=== PATIENT | male | born 1940 ===

== ENCOUNTER 2023-02-04 18:29 | Emergency (ER) | payer MEDICARE, SELFPAY ==
--- NOTE | ~2023-02-04 | XR_ITS ---
EXAMINATION: XR CHEST 2 VIEWS CLINICAL INFORMATION: Weakness. COMPARISON: None. TECHNIQUE: Frontal and lateral views of the chest were obtained. FINDINGS: The heart, great vessels, pulmonary vasculature and mediastinum are normal. The lungs show no focal infiltrate, effusion or pneumothorax. There is no acute osseous abnormality. XR/XR chest 2V IMPRESSION: No active cardiopulmonary disease.
[2023-02-04 18:56] VITALS: BP 94/50; PULSE 78; RESP 16; TEMP 36.6; O2SAT 97; BMI 20.2
--- NOTE | 2023-02-04 18:56 | ED.FEVER ---
HPI - Fever General Chief Complaint: Fever Stated Complaint: fever Time Seen by Provider: 02/04/23 19:30 Source: patient and family (patient's son) Mode of arrival: ambulatory Limitations: no limitations History of Present Illness HPI Narrative: 83 year old male with PMH of anemia presenting with a chief complaint of tactile fevers, generalized weakness, and muscle aches x 10 days Patient reports first recorded fever was today at 101 for which he took Tylenol at 16:00 He reports occasional gait instability where he has to steady himself on nearby thurman, denies falls or LOC He reports 2 episodes of diarrhea 7 days ago but denies any other occurrences since then Denies dark or bloody stools Denies falls or loss of balance Denies other associated symptoms including abdominal pain, nausea, vomiting, cough, shortness of breath, or blurry vision. Patient also endorses urinary frequency but denies dysuria and reports that he drinks lots of water He reports working in his garden daily and is concerned for possible tick-borne disease The patient is with his son who was recently diagnosed with babesiosis elicited complaint: fever, malaise and weakness Onset (ago): day(s) Associated symptoms: denies other symptoms Treatments prior to arrival fever: acetaminophen Related Data Previous Rx's Medication Instructions Recorded doxycycline hyclate 100 mg tablet 100 mg PO BID #42 tabs 02/04/23 Allergies Allergy/AdvReac Type Severity Reaction Status Date / Time No Known Allergies Allergy Verified 02/04/23 18:57 Review of Systems Constitutional: Constitutional: Reports as per HPI, Reports chills, Reports fever(s) and Denies frequent falls Eyes: Eyes: Denies blurry vision, Denies change in vision and Denies diplopia ENT: Denies dizziness, Denies nasal congestion, Denies nasal discharge and Denies sore throat Cardiovascular: Cardiovascular: Denies chest pain, Denies syncope, Denies dyspnea and Denies dyspnea on exertion Respiratory: Respiratory: Denies cough, Denies dyspnea and Denies dyspnea on exertion Gastrointestinal: Gastrointestinal: Denies abdominal pain, Denies melena, Denies bloating, Denies change in bowel habits and Denies constipation Genitourinary: Genitourinary: Denies difficulty urinating, Denies dysuria and Reports urinary frequency Musculoskeletal: Musculoskeletal: Denies back pain, Reports myalgias and Denies arthralgias Comments: General body aches Integumentary/Breasts: Skin/Breast: Denies rash Neurologic: Denies dizziness, Denies syncope and Denies frequent falls PMFSH Social History Social History Alcohol intake: former Smoked in Last 30 Days: No Use of substances other than those prescribed or required for medical reasons: No Advance Directives: No Advance Directives Information Provided: No Physical Exam Vital Signs: Vital Signs: Last Vital Signs Temp 97.8 F 02/04/23 18:56 Pulse 71 02/04/23 21:05 Resp 18 02/04/23 21:05 BP 105/52 L 02/04/23 21:05 Pulse Ox 100 02/04/23 20:29 O2 Del Method Room Air 02/04/23 20:29 BMI result Body Mass Index 20.2 Const: General: healthy appearing, comfortable, no acute distress, alert and awake Nutritional Appearance: well nourished Orientation/consciousness: patient oriented x3 HEENT: Head: Yes normocephalic and Yes atraumatic Eyes: Eyelids: Yes eyelids normal Conjunctivae: conjunctivae normal Sclerae: sclerae normal Corneas: corneas normal Pupils: Equal, round and reactive pupils present Neck: Neck: Yes full ROM Resp: Effort & Inspection: normal respiratory effort, able to speak in complete sentences, no audible wheezes and not labored Auscultation: clear to auscultation bilaterally GI: Inspection: No distended Palpation (GI): Soft to palpation, not firm, nontender, no guarding and not rigid Auscultation: normoactive bowel sounds Skin: General skin exam: no rashes or lesions noted and elasticity normal Neuro: General: patient oriented x3 Cranial nerves: Yes Equal, round and reactive pupils present and Yes Bilaterally intact EOM present Cognition (Neuro): normal cognition Course Course Course Narrative: RME - 83 y/o male with hx HTN, anemia, gastric cancer s/p [place] I now in remission who presents to the ER for evaluation of body aches and fatigue x10 days and new fever of 101 today. Son w/ recent Babesiosis. Patient has been working outside a lot lately. No known tick bites. BP soft in triage, no fever or tachycardia. Plan: tick panel, lab workup 02/09/2023 7:59 p.m. 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 He was noted to have a mild anemia with a normal MCV. Electrolytes/chemistries were reassuring. I discussed the patient's son who happens to be a hospitalist. Tick-borne disease is the most likely cause of the patient's fevers and myalgias. We will treat with doxycycline while the tick-borne panel is pending. I discussed a rectal exam with the patient and his son but they decline at this time Time: 21:57 Medical Decision Making Medical Decision Making [facility] Narrative: 83-year-old male presents for evaluation of fevers. He is febrile to 101 prior to arrival in treat himself with acetaminophen. He is afebrile in the emergency department. He is mildly hypotensive at 94/50. The patient has very Fe symptoms of generalized body aches and weakness. Will get chest x-ray, UA, labs including blood cultures as well as a tick panel. The patient is not septic Differential Diagnosis Differential Diagnoses: The differential diagnosis associated with the presentation includes Lyme Disease Babesiosis Anaplasmosis Upper Respiratory Infection Atypical Pneumonia Viral syndrome UTI Lab Data [facility] Lab Attestation statement: I reviewed the patient's lab results. (Mild normocytic anemia, no leukocytosis. Electrolytes within normal limits. Mild increase in AST to 43) 02/04/23 19:35 02/04/23 19:35 Labs: Lab Results 02/04/23 02/04/23 02/04/23 Range/Units 19:34 19:34 19:35 WBC 5.2 (4.8-10.8) X10*3/uL RBC 3.20 L (4.60-5.80) X10*6/uL Hgb 9.5 L (14.0-18.0) g/dl Hct 28.7 L (42.0-52.0) % MCV 89.7 (80.0-98.0) fL MCH 29.7 (27.0-33.0) pg MCHC 33.1 (31.0-36.0) g/dl RDW 13.9 (11.0-16.0) % Plt Count 129 L (160-400) X10*3/uL MPV 10.0 (9.4-12.4) fL Immature Gran % (Auto) 0.4 (0.0-0.4) % Neut % (Auto) 61.2 (45-73) % Lymph % (Auto) 18.6 L (20-40) % [place] % (Auto) 19.2 H (2-11) % Eos % (Auto) 0.4 (0-4) % Baso % (Auto) 0.2 (0-2) % Lymph # (Auto) 1.0 L (1.2-4.9) X10*3/uL [place] # (Auto) 1.0 (0.1-1.2) X10*3/uL Eos # (Auto) 0.0 (0.0-0.4) X10*3/uL Baso # (Auto) 0.0 (0.0-0.2) X10*3/uL Abs Immat Gran (auto) 0.02 (0.00-0.03) X10*3/uL Absolute Neuts (auto) 3.2 (2.0-8.3) x10*3/uL Absolute Nucleated RBC 0.000 (0.0-0.012) X10*3/uL Nucleated RBC % (auto) 0.0 (0.0-0.2) /100WBC Absolute Retic 0.057 (0.026-0.095) X10*6/uL Percent Retic 1.8 (0.5-1.8) % Immature Retic Fraction 3.9 (2.3-13.4) % Retic Hgb Equivalent 32.0 (30.0-35.0) pg Sodium (135-145) mmol/L Potassium (3.3-5.1) mmol/L Chloride (96-108) mmol/L Carbon Dioxide (22-29) mmol/L Anion Gap (12-20) BUN (9-16) mg/dL Creatinine (0.5-1.4) mg/dL Estim Creat Clear Calc Estimated GFR Random Glucose (60-115) mg/dL Lactic Acid 1.0 (0.5-2.0) mmol/L Calcium (8.4-10.2) mg/dL Magnesium (1.6-2.6) mg/dL Iron (45-160) mcg/dL TIBC (228-428) mcg/dL % Saturation (15-50) % Unsat Iron Binding ug/dL Ferritin (20-250) ng/mL Total Bilirubin (0.0-1.0) mg/dL Direct Bilirubin (0.0-0.5) mg/dL AST (5-37) U/L ALT (0-40) U/L Alkaline Phosphatase (39-117) U/L Lactate Dehydrogenase (118-273) U/L Total Protein (6.5-8.0) g/dL Albumin (3.5-5.0) g/dL Urine Color Urine Appearance Urine pH (5.0-9.0) Ur Specific [place] (1.005-1.025) Urine Protein (Neg-Trace) mg/dL Urine Glucose (UA) (Negative) mg/dL Urine Ketones (Negative) mg/dL Urine Blood (Negative) Urine Nitrite (Negative) Ur Leukocyte Esterase (Negative) A.phagocytophil DNA PCR (NOT DETECTED) Babesia microti DNA PCR (NOT DETECTED) Borrelia sp DNA (PCR) (NOT DETECTED) Borrelia miyamotoi (PCR) (NOT DETECTED) E.chaffeensis DNA (PCR) (NOT DETECTED) Malaria/Babesia Smear SEE NOTE (NEGATIVE) Tick-borne Disease Ab 02/04/23 02/04/23 02/04/23 Range/Units 19:35 19:35 21:05 WBC (4.8-10.8) X10*3/uL RBC (4.60-5.80) X10*6/uL Hgb (14.0-18.0) g/dl Hct (42.0-52.0) % MCV (80.0-98.0) fL MCH (27.0-33.0) pg MCHC (31.0-36.0) g/dl RDW (11.0-16.0) % Plt Count (160-400) X10*3/uL MPV (9.4-12.4) fL Immature Gran % (Auto) (0.0-0.4) % Neut % (Auto) (45-73) % Lymph % (Auto) (20-40) % [place] % (Auto) (2-11) % Eos % (Auto) (0-4) % Baso % (Auto) (0-2) % Lymph # (Auto) (1.2-4.9) X10*3/uL [place] # (Auto) (0.1-1.2) X10*3/uL Eos # (Auto) (0.0-0.4) X10*3/uL Baso # (Auto) (0.0-0.2) X10*3/uL Abs Immat Gran (auto) (0.00-0.03) X10*3/uL Absolute Neuts (auto) (2.0-8.3) x10*3/uL Absolute Nucleated RBC (0.0-0.012) X10*3/uL Nucleated RBC % (auto) (0.0-0.2) /100WBC Absolute Retic (0.026-0.095) X10*6/uL Percent Retic (0.5-1.8) % Immature Retic Fraction (2.3-13.4) % Retic Hgb Equivalent (30.0-35.0) pg Sodium 136 (135-145) mmol/L Potassium 4.7 (3.3-5.1) mmol/L Chloride 104 (96-108) mmol/L Carbon Dioxide 24 (22-29) mmol/L Anion Gap 13 (12-20) BUN 34 H (9-16) mg/dL Creatinine 0.88 (0.5-1.4) mg/dL Estim Creat Clear Calc 52.6 Estimated GFR > 60 Random Glucose 136 H (60-115) mg/dL Lactic Acid (0.5-2.0) mmol/L Calcium 9.3 (8.4-10.2) mg/dL Magnesium 2.3 (1.6-2.6) mg/dL Iron 36 L (45-160) mcg/dL TIBC 220 L (228-428) mcg/dL % Saturation 16 (15-50) % Unsat Iron Binding 184 ug/dL Ferritin 1107 H (20-250) ng/mL Total Bilirubin 0.9 (0.0-1.0) mg/dL Direct Bilirubin 0.3 (0.0-0.5) mg/dL AST 43 H (5-37) U/L ALT 30 (0-40) U/L Alkaline Phosphatase 58 (39-117) U/L Lactate Dehydrogenase 413 H (118-273) U/L Total Protein 7.4 (6.5-8.0) g/dL Albumin 3.5 (3.5-5.0) g/dL Urine Color Yellow Urine Appearance Clear Urine pH 5.5 (5.0-9.0) Ur Specific [place] 1.020 (1.005-1.025) Urine Protein Negative (Neg-Trace) mg/dL Urine Glucose (UA) Negative (Negative) mg/dL Urine Ketones Negative (Negative) mg/dL Urine Blood Negative (Negative) Urine Nitrite Negative (Negative) Ur Leukocyte Esterase Negative (Negative) A.phagocytophil DNA PCR NOT DETECTED (NOT DETECTED) Babesia microti DNA PCR DETECTED A (NOT DETECTED) Borrelia sp DNA (PCR) NOT DETECTED (NOT DETECTED) Borrelia miyamotoi (PCR) NOT DETECTED (NOT DETECTED) E.chaffeensis DNA (PCR) NOT DETECTED (NOT DETECTED) Malaria/Babesia Smear (NEGATIVE) Tick-borne Disease Ab SEE NOTE Tests considered The following testing was considered but not selected: Rectal exam with guaiac testing. Patient declined Discharge Plan Discharge Clinical Impression: Fever Patient Disposition: Home, Self-Care Instructions: Fever in Adults (ED) Additional Instructions: Your workup in the emergency department today was reassuring. No cause of your fever was noted It is possible that it is related to a tick borne disease. Therefore you should take doxycycline twice daily for up to 3 weeks if your Lyme disease is positive We will call you if any of the tick-borne disease are positive or if your blood cultures are positive. Your blood work and chest x-ray, UA were reassuring Your hemoglobin was low today at 9.5. This may be related to your current illness, but make sure you follow-up with your primary doctor Return for new or worsening symptoms, especially if you notice black or bloody stool Prescriptions: New doxycycline hyclate 100 mg tablet 100 mg PO BID Qty: 42 0RF Interventions: ED Discharge Assessment Last Done: 02/04/23 22:15 Discharge Date/Time: 02/04/23 22:17
--- NOTE | 2023-02-04 19:39 | MHC.EDTECH ---
This tech brought patient into triage area,first set of blood cultures and labs were obtained and sent to lab. Patient attempted to give a urine sample and was unable to at this time. SHIRIN Anderson aware Patient was brought back to bed 3 and patient changed into hospital attire. SHIRIN Anderson is at beside
[2023-02-04 19:44] LABS: MANUAL DIFF FLAG NO
[2023-02-04 19:52] LABS: Basophils Percent Auto 0.2 % (0-2); Eosinophils Percent Auto 0.4 % (0-4); Hematocrit 28.7 % (42.0-52.0); Hemoglobin 9.5 g/dl (14.0-18.0); Imm Gran Abs Auto 0.02 X10*3/uL (0.00-0.03); Imm Gran Pct Auto 0.4 % (0.0-0.4); Lymphocytes Percent Auto 18.6 % (20-40); Mean Corpuscular HGB Conc 33.1 g/dl (31.0-36.0); Mean Corpuscular Hemoglobin 29.7 pg (27.0-33.0); Mean Corpuscular Volume 89.7 fL (80.0-98.0); Monocytes Percent Auto 19.2 % (2-11); Neutrophils Absolute Auto 3.2 x10*3/uL (2.0-8.3); Neutrophils Percent Auto 61.2 % (45-73); Platelet Count 129 X10*3/uL (160-400); Red Cell Distribution Width 13.9 % (11.0-16.0); White Blood Count 5.2 X10*3/uL (4.8-10.8)
--- NOTE | 2023-02-04 20:04 | PC.NURSE ---
pt brought into room 3 from triage. pt changed into gown, placed on shake packer. iv line placed #20g LFA, second set blood cultures drawn and sent. one liter IVF started per PAMELLA Chamberlain verbal order. son at bedside. pt offers no current complaints, is not currently febrile, states he took tylenol approx 3 hours [employer]. will ctm.
[2023-02-04 20:29] VITALS: BP 112/62; PULSE 69; RESP 21; O2SAT 100
[2023-02-04 21:05] VITALS: BP 105/52; PULSE 71; RESP 18
[2023-02-04 21:26] LABS: Appearance Urine Clear; Color Urine Yellow; Glucose Urine UA Negative (Negative); Leukocyte Esterase Urine Negative (Negative); Nitrite Urine Negative (Negative); PH 5.5 (5.0-9.0); Urine Blood Negative (Negative); Urine Ketones Negative (Negative); Urine Protein Negative (Neg-Trace)
[2023-02-04 21:27] LABS: Immature Retic Fraction 3.9 % (2.3-13.4); Reticulocyte Percent 1.8 % (0.5-1.8); Reticulocytes Absolute 0.057 X10*6/uL (0.026-0.095)
[2023-02-04 21:37] LABS: Alanine Aminotransferase 30 U/L (0-40); Albumin Level 3.5 g/dL (3.5-5.0); Alkaline Phosphatase 58 U/L (39-117); Anion Gap 13 (12-20); Aspartate Amino Transferase 43 U/L (5-37); Bilirubin Direct 0.3 mg/dL (0.0-0.5); Bilirubin Total 0.9 mg/dL (0.0-1.0); Blood Urea Nitrogen 34 mg/dL (9-16); Calcium 9.3 mg/dL (8.4-10.2); Carbon Dioxide 24 mmol/L (22-29); Chloride 104 mmol/L (96-108); Creatinine Clr Calc Pharmacy 52.6; Estimated Glomerular Filt Rate > 60; Glucose Random 136 mg/dL (60-115); Lactate Dehydrogenase 413 U/L (118-273); Magnesium 2.3 mg/dL (1.6-2.6); Potassium 4.7 mmol/L (3.3-5.1); Sodium 136 mmol/L (135-145); Total Protein 7.4 g/dL (6.5-8.0)
[2023-02-04 22:32] LABS: Iron 36 mcg/dL (45-160); Percent Iron Saturation 16 % (15-50); Total Iron Binding Capacity 220 mcg/dL (228-428); Unsaturated Iron Binding 184 ug/dL
[2023-02-04 22:52] LABS: Ferritin 1107 ng/mL (20-250)
[2023-02-07 19:44] LABS: A. Phagocytphilium DNA,RT-PCR NOT DETECTED (NOT DETECTED); Babesia Microti DNA, RT-PCR DETECTED (NOT DETECTED); Borrelia Miyamotoi,DNA RT-PCR NOT DETECTED (NOT DETECTED); E.Chaffeensis DNA RT-PCR NOT DETECTED (NOT DETECTED); Lyme(Borrelia ssp)DNA RT-PCR NOT DETECTED (NOT DETECTED)
[2023-02-10 17:18] LABS: Lyme Abs Screen <0.90 index
== END 2023-02-04 22:17 | disposition home or self-care (01) ==
PROVIDERS: Physician Assistant; Emergency Provider Internal Medicine
DX: B60.00 Babesiosis, unspecified (principal); D64.9 Anemia, unspecified; R50.9 Fever, unspecified; R53.1 Weakness; M79.10 Myalgia, unspecified site; I10 Essential (primary) hypertension; R53.83 Other fatigue
CPT/HCPCS: 36415; 71046; 80048; 80076; 81003; 82728; 83540; 83605; 83615; 83735; 85025; 85045; 86617; 86618; 87040; 87207; 87798; 87801; 99283; 99284

== ENCOUNTER 2023-02-14 10:49 | Outpatient (REF) | payer MEDICARE, SELFPAY ==
[2023-02-14 11:03] LABS: MANUAL DIFF FLAG NO
[2023-02-14 11:14] LABS: Basophils Percent Auto 0.2 % (0-2); Eosinophils Percent Auto 0.8 % (0-4); Hematocrit 29.8 % (42.0-52.0); Hemoglobin 9.5 g/dl (14.0-18.0); Imm Gran Abs Auto 0.04 X10*3/uL (0.00-0.03); Imm Gran Pct Auto 0.8 % (0.0-0.4); Immature Retic Fraction 17.7 % (2.3-13.4); Lymphocytes Absolute Auto 1.2 X10*3/uL (1.2-4.9); Lymphocytes Percent Auto 22.5 % (20-40); Mean Corpuscular HGB Conc 31.9 g/dl (31.0-36.0); Mean Platelet Volume 8.5 fL (9.4-12.4); Monocytes Absolute Auto 0.5 X10*3/uL (0.1-1.2); Neutrophils Absolute Auto 3.5 x10*3/uL (2.0-8.3); Neutrophils Percent Auto 65.7 % (45-73); Platelet Count 252 X10*3/uL (160-400); Red Blood Count 3.17 X10*6/uL (4.60-5.80); Red Cell Distribution Width 15.3 % (11.0-16.0); Reticulocyte Percent 4.7 % (0.5-1.8); White Blood Count 5.3 X10*3/uL (4.8-10.8)
[2023-02-14 11:48] LABS: Alanine Aminotransferase 46 U/L (0-40); Albumin Level 3.5 g/dL (3.5-5.0); Alkaline Phosphatase 56 U/L (39-117); Anion Gap 17 (12-20); Aspartate Amino Transferase 58 U/L (5-37); Blood Urea Nitrogen 28 mg/dL (9-16); Calcium 9.9 mg/dL (8.4-10.2); Carbon Dioxide 22 mmol/L (22-29); Chloride 103 mmol/L (96-108); Estimated Glomerular Filt Rate > 60; Glucose Random 126 mg/dL (60-115); Potassium 4.8 mmol/L (3.3-5.1); Sodium 137 mmol/L (135-145); Total Protein 7.7 g/dL (6.5-8.0)
[2023-02-14 12:13] LABS: Folate 14.1 ng/mL (> or = 4.0); Vitamin B12 > 2000 pg/mL (200-900)
[2023-02-14 14:02] LABS: Bilirubin Total 0.6 mg/dL (0.0-1.0)
== END 2023-02-14 10:50 | disposition home or self-care (01) ==
LOC: HO.LAB 10:49
PROVIDERS: Visit Provider Family Medicine
DX: D64.9 Anemia, unspecified (principal); B60.00 Babesiosis, unspecified
CPT/HCPCS: 36415; 80053; 82607; 82746; 85025; 85045; 87207

== ENCOUNTER 2023-09-22 19:14 | Inpatient (IN) | payer MEDICARE, SELFPAY ==
--- NOTE | ~2023-09-22 | MR_ITS ---
EXAMINATION: MR ABDOMEN WITHOUT AND WITH CONTRAST CLINICAL INFORMATION: Masslike fatty inflammation in the right abdomen COMPARISON: Previous CT of the abdomen and pelvis from yesterday TECHNIQUE: MR abdomen was performed without and with use of 6 mL intravenous Gadavist gadolinium contrast. Postcontrast images are performed in multiphase dynamic sequences. Imaging was performed in 3 planes. FINDINGS: LUNG BASES: Not included in the [id number] LIVER, GALLBLADDER, AND BILIARY TREE: The liver is normal in size, smooth in contour, and normal in signal. No focal hepatic lesion or biliary ductal dilatation is present. The gallbladder is unremarkable with no evidence of gallbladder wall thickening, or obvious pericholecystic inflammatory changes. PANCREAS: Unremarkable. SPLEEN: Normal. ADRENAL GLANDS: Normal. KIDNEYS AND URETERS: The kidneys are normal in size, shape, and enhance symmetrically. No hydronephrosis. Bilateral renal cysts. No imaging follow-up recommended. No perinephric stranding. GASTROINTESTINAL TRACT: There may be postsurgical changes to the stomach. This is better seen on yesterday. There is heterogeneous fat signal in the right side of the abdomen anterior to the cecum and ascending colon. This is just deep to the anterior abdominal wall. This measures approximately 4 x 9 x 9 cm in AP transverse and longitudinal dimension. This is slightly low signal on T1-weighted sequences and heterogeneous on T2-weighted sequences. This has delayed capsular or peripheral enhancement and slightly thickened enhancing septation for example axial image 60 series 103 postcontrast. Differential would include fat necrosis related to previous trauma or surgery, epiploic appendicitis and fatty soft tissue mass. Large amount of stool in the colon. ABDOMINAL WALL: No significant hernia is appreciated. LYMPH NODES: No lymphadenopathy. VASCULAR: Unremarkable. OSSEOUS STRUCTURES: Marrow signal normal. MR/MR abdomen wo/w con IMPRESSION: 4 x 9 x 9 cm fatty mass in the right abdomen. This has delayed peripheral or capsular enhancement and enhancing single slightly thickened septation. Differential would include fat necrosis related to previous surgery or trauma, epiploic appendicitis and benign and malignant fatty soft tissue mass. Short-term imaging follow-up recommended.
--- NOTE | ~2023-09-22 | CT_ITS ---
EXAMINATION: CT ABDOMEN AND PELVIS WITH CONTRAST CLINICAL INFORMATION: Right lower quadrant pain COMPARISON: None available. TECHNIQUE: Multidetector volumetric images were obtained from the superior aspect of the liver through the pubic symphysis following administration 85 mL of Omnipaque 350 intravenous contrast. Sagittal and coronal reformatted images were obtained on the technologist's workstation. Oral contrast: No This CT examination was performed using dose optimization techniques as appropriate, variously including the following: *Automated exposure control *Adjustment of mA and/or kV according to patient size (this includes techniques or standardized protocols for targeted exams where dose is matched to indication/reason for exam; i.e. extremities or head) *Use of iterative reconstruction technique DLP: 429 mGy-cm FINDINGS: LUNG BASES: The visualized lung bases are unremarkable. LIVER, GALLBLADDER, AND BILIARY TREE: The liver is normal in size, shape, and attenuation. No focal hepatic lesion or biliary ductal dilatation is present. The gallbladder is contracted but otherwise unremarkable with no evidence of radiopaque gallstones, gallbladder wall thickening, or obvious pericholecystic inflammatory changes. PANCREAS: Unremarkable. SPLEEN: Unremarkable. ADRENAL GLANDS: Unremarkable. KIDNEYS AND URETERS: The kidneys are normal in size, shape, and attenuation. No hydronephrosis, hydroureter, or calculi seen. Multiple bilateral benign Bosniak class I renal cysts are noted which require no additional imaging or follow-up. No solid renal masses are seen. No perinephric stranding. BLADDER: Unremarkable. GASTROINTESTINAL TRACT: In the right lower quadrant/midabdomen there is a 6.0 x 5.1 x 4.6 cm area of masslike fatty inflammation. This is adjacent to a segment of transverse colon with some wall thickening, narrowing and pericolonic inflammatory change. Small bowel loops adjacent to this area also appears thickened and minimally tethered. These findings could be secondary to an unusual case of diverticulitis or epiploic appendagitis and much less likely a liposarcoma. The small and large bowel are otherwise unremarkable. The appendix is unremarkable. ABDOMINAL WALL: No significant hernia is appreciated. LYMPH NODES: No retroperitoneal lymphadenopathy VASCULAR: Calcific atherosclerotic changes are present in the aorta and iliofemoral vessels. There is no evidence of an abdominal aortic aneurysm. PELVIC VISCERA: Mildly prominent prostate. Seminal vesicles appear normal. OSSEOUS STRUCTURES: Degenerative changes are present in the spine. No bony destructive lesions CT/CT abdomen pelvis w IV con IMPRESSION: 1. Masslike area of fatty inflammation in the right lower quadrant/midabdomen adjacent to a segment of transverse colon with some wall thickening and pericolonic inflammatory change. This may be secondary to diverticulitis or epiploic appendagitis and less likely malignancy. 2. Other incidental findings as described above. Fleischner guidelines were followed.
[2023-09-22 20:14] VITALS: BP 130/83; PULSE 81; RESP 18; TEMP 37.2; O2SAT 96; BMI 21.1
--- NOTE | 2023-09-22 20:20 | ED_ITS ---
HPI - General Adult General Chief complaint: Abdominal Pain Stated complaint: LWR RT TO MIDDLE ABD PAIN/APPENDICITIS? Time Seen by Provider: 09/22/23 21:14 Source: patient Mode of arrival: ambulatory Limitations: no limitations History of Present Illness HPI narrative: Patient is an 83-year-old male who presents to the emergency department for evaluation of right lower quadrant abdominal pain. Onset was 2 days ago. Progressively worsening. Has been constant in nature but worse since yesterday evening. He was evaluated at urgent care and advised to come to the emergency department to rule out appendicitis. Denies fevers, chills, nausea, vomiting, diarrhea, constipation, genitourinary symptoms, back/flank pain. Related Data Home Medications Medication Instructions Recorded Confirmed irbesartan 300 mg tablet 300 mg PO DAILY 09/23/23 09/23/23 lovastatin 40 mg tablet 40 mg PO DAILY 09/23/23 09/23/23 Previous Rx's Medication Instructions Recorded doxycycline hyclate 100 mg tablet 100 mg PO BID #42 tabs 02/04/23 Allergies Allergy/AdvReac Type Severity Reaction Status Date / Time No Known Allergies Allergy Verified 02/04/23 18:57 Review of Systems 2 Review of Systems: Yes all other systems are reviewed and are negative PMFSH Past Medical History Attestation statement: The following information was validated with the patient. Source: old records reviewed Medical History (Updated 09/23/23 @ 00:54 by Yeimy Marroquin MD) Gastric cancer Hyperlipidemia Essential hypertension Surgical History (Updated 09/23/23 @ 00:58 by Yeimy Marroquin MD) H/O colonoscopy H/O esophagogastroduodenoscopy H/O laparoscopy Social History Social History (Updated 09/23/23 @ 00:55 by Yeimy Marroquin MD) Alcohol intake: current Comment: 1 serving/wek Patient Tobacco Use Status: Former Tobacco user Years Smoked: quit 1984 Smoked in Last 30 Days: No e-Cigarette/Vaping Use: Never Used Use of substances other than those prescribed or required for medical reasons: No Advance Directives: No Advance Directives Information Provided: No Physical Exam ED Vital Signs: Vital Signs - 24 hr 09/22/23 20:14 09/22/23 22:51 Temperature 98.9 F 99.1 F Pulse Rate 81 87 Respiratory Rate 18 18 Blood Pressure 130/83 126/68 Pulse Oximetry 96 97 Oxygen Delivery Method Room Air Room Air BMI result Body Mass Index 21.1 Appearance: Alert.?Oriented to person, place and time. No acute distress.?Normal affect. Neck: Normal inspection.? Neck supple.?? CVS: Heart sounds normal. Normal heart rate and rhythm.? Pulses normal.?? Respiratory: No respiratory distress.? Lung sounds clear to auscultation bilaterally?? Abdomen: Soft with significant right lower quadrant tenderness upon palpation. Hypo active bowel sounds. No pulsatile mass.?? Skin: Skin warm and dry.? Normal skin color.? ? Extremities: No lower extremity edema.? Neuro: Moves all extremities spontaneously. Sensation intact bilaterally. Ambulates with normal steady gait. Course Course Course Narrative: RME- 83-year-old male presents for evaluation of right lower quadrant pain for last 2 days. He was sent from urgent care to rule out appendicitis. Plan for labs, UA, CT scan of the abdomen pelvis Reevaluation(s) Reevaluation #1: CT revealing a masslike area fatty inflammation the right lower quadrant/mid abdomen adjacent to a segment of the transverse colon with some wall thickening and pericolonic inflammatory changes, radiologist impression includes possible secondary to diverticulitis or epiploic appendagitis, less likely malignancy. History does not appear consistent with diverticulitis. I did consult General surgery, spoke with Dr. Price who did not feel as though abscess or appendicitis is seen in recommended MRI for further clarification. He does still have significant tenderness upon palpation I discussed with patient and his son admission to medicine service for further workup and possible GI consultation, and he agrees with plan of care Time: 23:38 Medications Administered Generic Name Dose Route Start Last Admin Trade Name Freq PRN Reason Stop Dose Admin Sodium Chloride 1,000 mls @ 100 mls/hr 09/23/23 00:30 09/23/23 00:37 Ns IVCONT 100 mls/hr .Q10H ALFONSO Administration Zolpidem Tartrate 5 mg 09/23/23 00:45 09/23/23 00:56 Zolpidem Tartrate 5 Mg Tablet PO 5 mg BEDTIME PRN Administration Insomnia Discontinued Medications Generic Name Dose Route Start Last Admin Trade Name Freq PRN Reason Stop Dose Admin Sodium Chloride 1,000 mls @ 999 mls/hr 09/22/23 21:15 09/22/23 22:22 Ns IV 09/22/23 22:15 Infused .Q1H1M ALFONSO Infusion Iohexol 100 ml 09/22/23 21:44 09/22/23 21:46 Iohexol 350 Mg/Ml 100 Ml Infus..Btl IV 09/22/23 21:45 85 ml ONCE ONE Administration Medical Decision Making Medical Decision Making [facility] Narrative: Patient is an 83-year-old male past medical history of hypertension hyperlipidemia presenting to the emergency department for evaluation of right lower quadrant pain as per HPI. Has exquisite tenderness upon examination, concern for possible appendicitis, colitis, bowel obstruction, constipation. Less likely hydronephrosis, renal colic, obstructive calculi. CBC is without leukocytosis there is however left shift, mild normocytic anemia consistent with baseline. Elevated BUN at 27 consistent with baseline creatinine within normal range otherwise unremarkable CMP and lipase is within normal limits. Urinalysis and CT of the abdomen and pelvis is pending at this time. Patient declines pain medication. Disposition pending results. Differential Diagnosis Differential Diagnoses: The differential diagnosis associated with the presentation includes (As per narrative above) Admission/Observation Consideration of admission/observation: Escalation of care including admission/observation considered (See narrative above in course narrative for further detail) Consult Healthcare Provider Management of the patient was discussed with: Hospitalist and Poiser Balance (See course narrative) Lab Data [facility] Lab Attestation statement: I reviewed the patient's lab results. (See narrative above) 09/22/23 20:30 09/22/23 20:30 Labs: Lab Results 09/22/23 09/22/23 Range/Units 20:30 22:19 WBC 8.1 (4.8-10.8) X10*3/uL RBC 3.44 L (4.60-5.80) X10*6/uL Hgb 10.6 L (14.0-18.0) g/dl Hct 31.8 L (42.0-52.0) % MCV 92.4 (80.0-98.0) fL MCH 30.8 (27.0-33.0) pg MCHC 33.3 (31.0-36.0) g/dl RDW 13.6 (11.0-16.0) % Plt Count 181 D (160-400) X10*3/uL MPV 9.3 L (9.4-12.4) fL Immature Gran % (Auto) 0.2 (0.0-0.4) % Neut % (Auto) 84.0 H (45-73) % Lymph % (Auto) 8.9 L (20-40) % [place] % (Auto) 6.6 (2-11) % Eos % (Auto) 0.1 (0-4) % Baso % (Auto) 0.2 (0-2) % Lymph # (Auto) 0.7 L (1.2-4.9) X10*3/uL [place] # (Auto) 0.5 (0.1-1.2) X10*3/uL Eos # (Auto) 0.0 (0.0-0.4) X10*3/uL Baso # (Auto) 0.0 (0.0-0.2) X10*3/uL Abs Immat Gran (auto) 0.02 (0.00-0.03) X10*3/uL Absolute Neuts (auto) 6.8 (2.0-8.3) x10*3/uL Absolute Nucleated RBC 0.000 (0.0-0.012) X10*3/uL Nucleated RBC % (auto) 0.0 (0.0-0.2) /100WBC Sodium 135 (135-145) mmol/L Potassium 4.0 (3.3-5.1) mmol/L Chloride 103 (96-108) mmol/L Carbon Dioxide 26 (22-29) mmol/L Anion Gap 10 L (12-20) BUN 27 H (9-16) mg/dL Creatinine 0.94 (0.5-1.4) mg/dL Estim Creat Clear Calc 51.3 Estimated GFR > 60 Random Glucose 147 H (60-115) mg/dL Calcium 9.7 (8.4-10.2) mg/dL Total Bilirubin 0.5 (0.0-1.0) mg/dL AST 21 (5-37) U/L ALT 14 (0-40) U/L Alkaline Phosphatase 49 (39-117) U/L C-Reactive Protein 4.67 H (< or = 0.50) mg/dL Total Protein 8.0 (6.5-8.0) g/dL Albumin 4.4 (3.5-5.0) g/dL Lipase 26 (8-78) U/L Urine Color Yellow Urine Appearance Clear Urine pH 7.0 (5.0-9.0) Ur Specific [place] 1.025 (1.005-1.025) Urine Protein Negative (Neg-Trace) mg/dL Urine Glucose (UA) Negative (Negative) mg/dL Urine Ketones Negative (Negative) mg/dL Urine Blood Trace H (Negative) Urine Nitrite Negative (Negative) Ur Leukocyte Esterase Negative (Negative) Urine RBC 0-2 (0-2) /HPF Urine WBC 0-5 (0-5) /HPF Ur Squamous Epith Cells 0-2 (0-2) /HPF Urine Bacteria None Seen (None Seen) Hyaline Casts 0-2 (0-2) /LPF Radiology Impression Discussion of test interpretation with radiology: I have reviewed the radiologist's reading. Radiologist Impression: CT/CT abdomen pelvis w IV con IMPRESSION: 1. Masslike area of fatty inflammation in the right lower quadrant/midabdomen adjacent to a segment of transverse colon with some wall thickening and pericolonic inflammatory change. This may be secondary to diverticulitis or epiploic appendagitis and less likely malignancy. 2. Other incidental findings as described above. Independent Historian Clinical information obtained from an independent historian. History obtained from or confirmed by: Other (Patient's son) External Record Review External record reviewed: Outpatient record Critical Care Time Critical Care Time Critical Care Time: Yes Total Critical Care Time: 45 Attestation: I personally attest to this critical care time spent taking care of the patient exclusive of all other billable procedures was approximately 45 minutes including initial evaluation of patient, ordering tests, CT interpretation,medical consultation, documentation, re-evaluation. Discharge Plan Discharge Clinical Impression: Abdominal pain Patient Disposition: Admitted As Inpatient
[2023-09-22 20:34] LABS: MANUAL DIFF FLAG NO
[2023-09-22 20:36] LABS: Basophils Percent Auto 0.2 % (0-2); Eosinophils Percent Auto 0.1 % (0-4); Hematocrit 31.8 % (42.0-52.0); Hemoglobin 10.6 g/dl (14.0-18.0); Imm Gran Abs Auto 0.02 X10*3/uL (0.00-0.03); Imm Gran Pct Auto 0.2 % (0.0-0.4); Lymphocytes Absolute Auto 0.7 X10*3/uL (1.2-4.9); Lymphocytes Percent Auto 8.9 % (20-40); Mean Corpuscular HGB Conc 33.3 g/dl (31.0-36.0); Mean Corpuscular Hemoglobin 30.8 pg (27.0-33.0); Mean Corpuscular Volume 92.4 fL (80.0-98.0); Mean Platelet Volume 9.3 fL (9.4-12.4); Monocytes Absolute Auto 0.5 X10*3/uL (0.1-1.2); Monocytes Percent Auto 6.6 % (2-11); Neutrophils Absolute Auto 6.8 x10*3/uL (2.0-8.3); Platelet Count 181 X10*3/uL (160-400); Red Blood Count 3.44 X10*6/uL (4.60-5.80); Red Cell Distribution Width 13.6 % (11.0-16.0); White Blood Count 8.1 X10*3/uL (4.8-10.8)
[2023-09-22 20:50] LABS: Alanine Aminotransferase 14 U/L (0-40); Albumin Level 4.4 g/dL (3.5-5.0); Alkaline Phosphatase 49 U/L (39-117); Anion Gap 10 (12-20); Aspartate Amino Transferase 21 U/L (5-37); Bilirubin Total 0.5 mg/dL (0.0-1.0); Blood Urea Nitrogen 27 mg/dL (9-16); Calcium 9.7 mg/dL (8.4-10.2); Carbon Dioxide 26 mmol/L (22-29); Chloride 103 mmol/L (96-108); Creatinine Clr Calc Pharmacy 51.3; Estimated Glomerular Filt Rate > 60; Glucose Random 147 mg/dL (60-115); Lipase 26 U/L (8-78); Sodium 135 mmol/L (135-145)
[2023-09-22] MEDS: 0.9 % Sodium Chloride 1,000 ML 999 ML IV (21:27)
[2023-09-22] MEDS: iohexoL 350 MG/ML 100 ML INFUS..BTL IV (21:46)
[2023-09-22 22:26] LABS: Appearance Urine Clear; Color Urine Yellow; Glucose Urine UA Negative (Negative); Leukocyte Esterase Urine Negative (Negative); Nitrite Urine Negative (Negative); Specific Gravity - Urine 1.025 (1.005-1.025); UMIC TRIGGER UACC YES; Urine Blood Trace (Negative); Urine Ketones Negative (Negative); Urine Protein Negative (Neg-Trace)
[2023-09-22 22:31] LABS: Bacteria Urine None Seen (None Seen); Hyaline Casts Urine 0-2 /LPF (0-2); RBC Urine 0-2 /HPF (0-2); Squamous Epithelial Cell Urine 0-2 /HPF (0-2); WBC Urine 0-5 /HPF (0-5)
[2023-09-22 22:51] VITALS: BP 126/68; PULSE 87; RESP 18; TEMP 37.3; O2SAT 97
[2023-09-22 23:26] LABS: C Reactive Protein 4.67 mg/dL (< or = 0.50)
[2023-09-23] VITALS (7 sets, daily range): BP systolic 110–134; BP diastolic 59–73; PULSE 68–78; RESP 16–18; TEMP 36.6–37.6; O2SAT 94–99; BMI 22.1
[2023-09-23] MEDS: 0.9 % Sodium Chloride 1,000 ML 100 ML IVCONT ×3 (00:37→20:26)
[2023-09-23] MEDS: Zolpidem Tartrate 5 MG TABLET PO (00:56)
--- NOTE | 2023-09-23 01:15 | P.HPHOSP_ITS ---
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 He denied any associated symptoms such as nausea, vomiting or diarrhea. His last bowel movement was yesterday and was normal. No fever, chills, palpitations or dizziness reported. He denied any chest pain, shortness on breath or cough. He is a former tobacco smoker (quit 1983). Denied alcohol abuse or illicit drug use. Abdominal past surgical history is remarkable for laparoscopic surgery for gastric CA removal in 2009. His last EGD and colonoscopy was in 2013. In the ED, he was found to have normal vital signs. Blood workup showed no leukocytosis. Hemoglobin is 10.6 (which is better than baseline). There are no significant electrolyte imbalances. Creatinine and LFTs are normal. CRP is elevated, 4.67. Urine did not showed evidence of urinary tract infection. Abdomen pelvis CT scan showed mass like area of fatty inflammation in the RLQ/midabdomen adjacent to a segment of transverse colon with some wall thickening and pericolic inflammatory changes (diverticulitis versus epiploic appendagitis, less likely malignancy. ED tx: NS 1 L bolus Review of Systems 2 Review of Systems: All 12 systems were reviewed and normal except as noted in HPI. [facility] Medical History (Updated 09/23/23 @ 01:36 by Yeimy Marroquin MD) Gastric cancer Hyperlipidemia Essential hypertension Surgical History (Updated 09/23/23 @ 00:58 by Yeimy Marroquin MD) H/O colonoscopy H/O esophagogastroduodenoscopy H/O laparoscopy Social History (Updated 09/23/23 @ 00:55 by Yeimy Marroquin MD) Alcohol intake: current Comment: 1 serving/wek Patient Tobacco Use Status: Former Tobacco user Years Smoked: quit 1983 Smoked in Last 30 Days: No e-Cigarette/Vaping Use: Never Used Use of substances other than those prescribed or required for medical reasons: No Advance Directives: No Advance Directives Information Provided: No Meds Allergies Allergy/AdvReac Type Severity Reaction Status Date / Time No Known Allergies Allergy Verified 02/04/23 18:57 Active Medications: Current Medications Sodium Chloride (Ns) 1,000 mls @ 100 mls/hr IVCONT .Q10H [facility] Last Admin: 09/23/23 00:37 Dose: 100 mls/hr Non-Formulary Medication (Irbesartan) 300 mg PO DAILY [facility] Non-Formulary Medication (Lovastatin) 40 mg PO DAILY [facility] Sodium Chloride (0.9 % Sodium Chloride Flush 3 Ml Syringe) 3 ml IVFLUSH QSHIFT [facility] Zolpidem Tartrate (Zolpidem Tartrate 5 Mg Tablet) 5 mg PO BEDTIME PRN PRN Reason: Insomnia Last Admin: 09/23/23 00:56 Dose: 5 mg Home Medications Medication Instructions Recorded Confirmed Last Taken Type irbesartan 300 mg tablet 300 mg PO DAILY 09/23/23 09/23/23 Unknown History lovastatin 40 mg tablet 40 mg PO DAILY 09/23/23 09/23/23 Unknown History Physical Exam 2 Vital Signs and Narrative: Vital Signs: Last Vital Signs Temp 99.1 F 09/22/23 22:51 Pulse 87 09/22/23 22:51 Resp 18 09/22/23 22:51 BP 126/68 09/22/23 22:51 Pulse Ox 97 09/22/23 22:51 O2 Del Method Room Air 09/22/23 22:51 BMI result Body Mass Index 21.1 Constitutional - Awake and Alert, No apparent distress. Cooperative. Pleasant. HEENT - Normal sclerae. Heart - S1S2, RRR. (+) murmur (apex) Lungs - Normal lung expansion, Normal respiratory effort, No respiratory distress, CTA bilaterally Gastrointestinal - +BS, no distention. RLQ/right periumbilical area tenderness to palpation with guarding. No rebound. Extremities - no calf tenderness bilaterally, no swelling Skin - Warm/Dry. No jaundice. Neurological - Alert & oriented x3. No focal weakness grossly noted. Normal speech Psychological - Appropriate affect Results Labs 09/22/23 20:30 09/22/23 20:30 Labs: Laboratory Results - last 24 hr 09/22/23 09/22/23 20:30 22:19 MCV 92.4 MCH 30.8 MCHC 33.3 RDW 13.6 Plt Count 181 D MPV 9.3 L Immature Gran % (Auto) 0.2 Neut % (Auto) 84.0 H Lymph % (Auto) 8.9 L [place] % (Auto) 6.6 Eos % (Auto) 0.1 Baso % (Auto) 0.2 Lymph # (Auto) 0.7 L [place] # (Auto) 0.5 Eos # (Auto) 0.0 Baso # (Auto) 0.0 Abs Immat Gran (auto) 0.02 Absolute Neuts (auto) 6.8 Absolute Nucleated RBC 0.000 Nucleated RBC % (auto) 0.0 Anion Gap 10 L Estim Creat Clear Calc 51.3 Estimated GFR > 60 Random Glucose 147 H Calcium 9.7 Total Bilirubin 0.5 AST 21 ALT 14 Alkaline Phosphatase 49 C-Reactive Protein 4.67 H Total Protein 8.0 Albumin 4.4 Lipase 26 Urine Color Yellow Urine Appearance Clear Urine pH 7.0 Ur Specific [place] 1.025 Urine Protein Negative Urine Glucose (UA) Negative Urine Ketones Negative Urine Blood Trace H Urine Nitrite Negative Ur Leukocyte Esterase Negative Urine RBC 0-2 Urine WBC 0-5 Ur Squamous Epith Cells 0-2 Urine Bacteria None Seen Hyaline Casts 0-2 Imaging Radiologist's Impressions: Impressions Abdomen/Pelvis CT 09/22/23 21:48 IMPRESSION: 1. Masslike area of fatty inflammation in the right lower quadrant/midabdomen adjacent to a segment of transverse colon with some wall thickening and pericolonic inflammatory change. This may be secondary to diverticulitis or epiploic appendagitis and less likely malignancy. 2. Other incidental findings as described above. Fleischner guidelines were followed. Assessment and Plan (1) Abdominal pain: Qualifiers: Abdominal location: right lower quadrant Qualified Code(s): R10.31 - Right lower quadrant pain Status: Acute (2) Essential hypertension: Status: Acute (3) Hyperlipidemia: Qualifiers: Hyperlipidemia type: unspecified Qualified Code(s): E78.5 - Hyperlipidemia, unspecified Status: Acute (4) Insomnia: Plan oRbin Michelle is a 83 years old man with past medical history significant for gastric CA stage 1A s/p laparoscopic Billroth in 2009 admitted with: * RLQ pain --> masslike area of inflammation (diverticulitis vs epiploic appendagitis; less likely malignancy). Admit to hospitalist service. Keep NPO. Start IV fluids Pain control with morphine and/or Toradol and/or acetaminophen as needed. Abdominal MRI. Gastroenterology and surgery service consults. * Essential hypertension. Continue irbesartan (or alternative). * Hyperlipidemia. Continue statin. * Insomnia. Continue Ambien. DVT prophylaxis: SCDs Code status: Full Patient will need hospitalization for at least 2 midnights for right lower quadrant pain treatment with IV pain medications and IV fluids. Patient will also need further evaluation with abdominal MRI in addition to evaluation by subspecialty + surgical service. Quality Stroke Does the patient have a stroke diagnosis?: No VTE Prior VTE?: No VTE Risk Level:: Medical - moderate - high VTE Device Contraindication: Treatment Not Indicated VTE Drug Contraindication: N/A - Med Ordered
[2023-09-23 06:44] LABS: MANUAL DIFF FLAG NO
[2023-09-23 06:49] LABS: Basophils Percent Auto 0.3 % (0-2); Eosinophils Absolute Auto 0.1 X10*3/uL (0.0-0.4); Eosinophils Percent Auto 0.8 % (0-4); Hemoglobin 9.7 g/dl (14.0-18.0); Imm Gran Abs Auto 0.03 X10*3/uL (0.00-0.03); Imm Gran Pct Auto 0.5 % (0.0-0.4); Lymphocytes Absolute Auto 0.9 X10*3/uL (1.2-4.9); Lymphocytes Percent Auto 13.7 % (20-40); Mean Corpuscular HGB Conc 33.4 g/dl (31.0-36.0); Mean Corpuscular Hemoglobin 31.2 pg (27.0-33.0); Mean Corpuscular Volume 93.2 fL (80.0-98.0); Monocytes Absolute Auto 0.6 X10*3/uL (0.1-1.2); Monocytes Percent Auto 9.2 % (2-11); Neutrophils Percent Auto 75.5 % (45-73); Platelet Count 183 X10*3/uL (160-400); Red Blood Count 3.11 X10*6/uL (4.60-5.80); Red Cell Distribution Width 13.5 % (11.0-16.0); White Blood Count 6.6 X10*3/uL (4.8-10.8)
[2023-09-23 07:16] LABS: Alanine Aminotransferase 12 U/L (0-40); Albumin Level 3.8 g/dL (3.5-5.0); Alkaline Phosphatase 44 U/L (39-117); Anion Gap 9 (12-20); Aspartate Amino Transferase 18 U/L (5-37); Bilirubin Total 0.9 mg/dL (0.0-1.0); Blood Urea Nitrogen 19 mg/dL (9-16); Calcium 8.7 mg/dL (8.4-10.2); Carbon Dioxide 25 mmol/L (22-29); Chloride 107 mmol/L (96-108); Creatinine Clr Calc Pharmacy 64.3; Estimated Glomerular Filt Rate > 60; Glucose Random 92 mg/dL (60-115); Potassium 3.5 mmol/L (3.3-5.1); Sodium 137 mmol/L (135-145); Total Protein 6.8 g/dL (6.5-8.0)
[2023-09-23] MEDS: Pravastatin Sodium 40 MG TABLET PO (08:51)
[2023-09-23] MEDS: Valsartan 160 MG TABLET PO (08:51)
--- NOTE | 2023-09-23 09:13 | PM.EVENT ---
Event Note Date of Service: 09/23/23 Event Note: 83-year-old man with past medical history significant for gastric cancer stage IA status post laparoscopic Billroth procedure in 2009 presenting with abdominal pain. Nine Right lower quadrant abdominal pain No nausea, vomiting, diarrhea, fever or leukocytosis noted Abdominal CT showing masslike area of inflammation, diverticulitis versus epiploic appendagitis NPO for now, IV fluids Gastroenterology consultation pending Abdominal MRI ordered and pending Pain management as needed History of essential hypertension Continue losartan Normocytic anemia No signs of bleeding Monitor CBC Hyperlipidemia Continue statin History of insomnia Continue Ambien Patient required at least 48 hours of inpatient admission for treatment of right lower quadrant pain requiring IV pain medications and specialty consultation that can not be done at a lesser acute setting. Time Spent With Patient Time: Total time managing care of this patient today ____ minutes.
--- NOTE | 2023-09-23 09:34 | MHC.CM.PN ---
CM met with Patient at bedside and addressed IMM with him, providing Patient with the original and a copy has been placed on the chart. Patient olives in a house with his and he required no services nor DME [employer]ER. Home/self care is the goal and CM has initiated and will follow for dc planning. CM assisted Patient with the completion of a HCP; Patient named his Son/Iglesia as his Agent. PCP is Dr. Mayito Coates in [place].
--- NOTE | 2023-09-23 10:35 | PHA.MEDREC ---
Addendum entered by Anne Burks [facility] 09/23/23 10:37: Pt stated he only takes tamsulosin only when he travels. Original Note: Pharmacy Consult ? Medication Reconciliation Pharmacy has completed the medication reconciliation with the patient, Pt was able to recall all medications, pt states he takes lovastatin every other day although his claims hx states once daily, he reports taking no OTCs.
[2023-09-23 13:14] LABS: Iron 26 mcg/dL (45-160); Percent Iron Saturation 11 % (15-50); Total Iron Binding Capacity 229 mcg/dL (228-428); Unsaturated Iron Binding 203 ug/dL
--- NOTE | 2023-09-23 13:46 | P.CONGS_ITS ---
History of Present Illness Consult details Consult date: 09/23/23 Requesting physician: Molly Salinas Narrative: 83-year-old male patient presenting with complaints of right lower quadrant abdominal pain of several days duration, increasing in severity over the last 24 hours. Patient denied fever, chills, nausea or vomiting. He does have a history of a stage I A gastric cancer status post Billroth-I resection. Previous colonoscopy was approximately 7 years ago. Workup in the emergency department revealed a normal WBC. CT abdomen and pelvis however revealed fatty infiltration in the right abdomen adjacent to the transverse colon suggestive of pericolonic inflammatory changes possibly due diverticulitis or epiploic appendagitis. Today he continues to have the abdominal pain in the right lower quadrant but denies motion tenderness. Laboratories remain normal. He is scheduled for MRI of the abdomen later today. Gastroenterology consultation is also pending. Review of Systems 2 Review of Systems: Yes all other systems are reviewed and are negative Constitutional: Constitutional: Denies chills, Denies fever(s), Denies headache(s), Denies poor appetite and Denies weakness ENT: Denies headache(s) Cardiovascular: Cardiovascular: Denies chest pain, Denies irregular heart rhythm, Denies palpitations and Denies dyspnea Respiratory: Respiratory: Denies cough, Denies excessive phlegm production and Denies dyspnea Gastrointestinal: Gastrointestinal: Reports abdominal pain, Denies bloating, Denies change in bowel habits, Denies constipation, Denies heartburn, Denies diarrhea, Denies nausea and Denies vomiting Genitourinary: Genitourinary: Denies difficulty urinating and Denies urinary frequency Musculoskeletal: Musculoskeletal: Denies back pain, Denies muscle weakness and Denies numbness Integumentary/Breasts: Skin/Breast: Denies changing lesions and Denies unusual bruising Neurologic: Denies headache(s), Denies numbness, Denies paresthesias and Denies weakness Psychiatric: Psychiatric: Denies anxiety and Denies depression Endocrine: Endocrine: Denies palpitations Hematologic/Lymphatic: Hematologic/Lymphatic: Denies lymphadenopathy PMFSH Past Medical History Medical History Gastric cancer Hyperlipidemia Essential hypertension Surgical History Surgical History H/O colonoscopy H/O esophagogastroduodenoscopy H/O laparoscopy Social History Social History Household Members: Spouse Housing: House Do you presently have visiting nurse or other home services: Yes Alcohol intake: current Comment: 1 serving/wek Patient Tobacco Use Status: Former Tobacco user Years Smoked: quit 1983 e-Cigarette/Vaping Use: Never Used service: No Meds Allergies Allergy/AdvReac Type Severity Reaction Status Date / Time No Known Allergies Allergy Verified 02/04/23 18:57 Active Medications: Current Medications Acetaminophen (Acetaminophen 325 Mg Tablet) 975 mg PO Q6H PRN PRN Reason: Pain, Mild (Pain Scale 1-3) Sodium Chloride (Ns) 1,000 mls @ 100 mls/hr IVCONT .Q10H [facility] Last Admin: 09/23/23 09:42 Dose: 100 mls/hr Ketorolac Tromethamine (Ketorolac Tromethamine 15 Mg/Ml Vial) 15 mg IVPUSH Q6H PRN PRN Reason: Pain, Moderate(Pain Scale 4-6) Morphine Sulfate (Morphine Sulfate 2 Mg/Ml Cartridge) 2 mg IVPUSH Q3H PRN; Protocol PRN Reason: Pain, Severe (Pain Scale 7-10) Pravastatin Sodium (Pravastatin Sodium 40 Mg Tablet) 40 mg PO Q48H [facility] Sodium Chloride (0.9 % Sodium Chloride Flush 3 Ml Syringe) 3 ml IVFLUSH QSHIFT [facility] Last Admin: 09/23/23 08:19 Dose: Not Given Valsartan (Valsartan 160 Mg Tablet) 160 mg PO DAILY [facility] Last Admin: 09/23/23 08:51 Dose: 160 mg Zolpidem Tartrate (Zolpidem Tartrate 5 Mg Tablet) 5 mg PO BEDTIME PRN PRN Reason: Insomnia Last Admin: 09/23/23 00:56 Dose: 5 mg Home Medications Medication Instructions Recorded Confirmed Last Taken Type irbesartan 300 mg tablet 300 mg PO DAILY 09/23/23 09/23/23 Unknown History lovastatin 40 mg tablet 40 mg PO DAILY 09/23/23 09/23/23 Unknown History zolpidem 5 mg tablet 5 mg PO DAILY PRN Insomnia 09/23/23 09/23/23 Unknown History Physical Exam 2 Vital Signs: Vital Signs: Last Vital Signs Temp 98.4 F 09/23/23 11:02 Pulse 68 09/23/23 11:02 Resp 18 09/23/23 11:02 BP 126/61 09/23/23 11:02 Pulse Ox 99 09/23/23 11:02 O2 Del Method Room Air 09/23/23 11:02 BMI result Body Mass Index 22.1 Const: General: cooperative and no acute distress Nutritional Appearance: w ell nourished Orientation/consciousness: patient oriented x3 Limitations: no limitations HEENT: Head: Yes normocephalic and Yes atraumatic Ears: hearing grossly normal bilaterally Resp: Effort & Inspection: normal respiratory effort, no audible wheezes, no cough and no respiratory distress Cardio: Jugular venous distension: no JVD GI: Other: Soft, nondistended, tender in the right lower quadrant without rebound, guarding or rigidity. Inspection: Yes normal to inspection Abdomen image: 1. Area of tenderness right lower quadrant Skin: Other: Warm, dry, no rash Neuro: General: patient oriented x3 Extrem: General: Yes no clubbing, cyanosis or edema Results Labs 09/23/23 05:23 09/23/23 05:23 Labs: Abnormal lab results 09/22/23 09/22/23 09/23/23 Range/Units 20:30 22:19 05:23 RBC 3.44 L 3.11 L (4.60-5.80) X10*6/uL Hgb 10.6 L 9.7 L (14.0-18.0) g/dl Hct 31.8 L 29.0 L (42.0-52.0) % MPV 9.3 L (9.4-12.4) fL Immature Gran % (Auto) 0.5 H (0.0-0.4) % Neut % (Auto) 84.0 H 75.5 H (45-73) % Lymph % (Auto) 8.9 L 13.7 L (20-40) % Lymph # (Auto) 0.7 L 0.9 L (1.2-4.9) X10*3/uL Anion Gap 10 L 9 L (12-20) BUN 27 H 19 H (9-16) mg/dL Random Glucose 147 H (60-115) mg/dL Iron 26 L (45-160) mcg/dL % Saturation 11 L (15-50) % C-Reactive Protein 4.67 H (< or = 0.50) mg/dL Urine Blood Trace H (Negative) Short CBC 09/22/23 09/23/23 Range/Units 20:30 05:23 WBC 8.1 6.6 (4.8-10.8) X10*3/uL Hgb 10.6 L 9.7 L (14.0-18.0) g/dl Hct 31.8 L 29.0 L (42.0-52.0) % Plt Count 181 D 183 (160-400) X10*3/uL BMP 09/22/23 09/23/23 20:30 05:23 Sodium 135 137 Potassium 4.0 3.5 Chloride 103 107 Carbon Dioxide 26 25 BUN 27 H 19 H Creatinine 0.94 0.75 Calcium 9.7 8.7 D Liver Function 09/22/23 09/23/23 Range/Units 20:30 05:23 Total Bilirubin 0.5 0.9 (0.0-1.0) mg/dL AST 21 18 (5-37) U/L ALT 14 12 (0-40) U/L Alkaline Phosphatase 49 44 (39-117) U/L Albumin 4.4 3.8 (3.5-5.0) g/dL Urine 09/22/23 Range/Units 22:19 Urine Color Yellow Urine Appearance Clear Urine pH 7.0 (5.0-9.0) Ur Specific [place] 1.025 (1.005-1.025) Urine Protein Negative (Neg-Trace) mg/dL Urine Glucose (UA) Negative (Negative) mg/dL All other labs normal. Assessment and Plan (1) Abdominal pain: Qualifiers: Abdominal location: right lower quadrant Qualified Code(s): R10.31 - Right lower quadrant pain Status: Acute Plan 83-year-old male patient with prior history of early gastric cancer, now with abdominal pain of 2 days' duration located in the right lower quadrant. Workup revealed a normal WBC. CT abdomen and pelvis revealed area of inflammation around the right colon transverse colon. No evidence of acute appendicitis. MRI of abdomen and GI consultation pending. Will continue to monitor. Procedures Date of Service Date of Service: 09/23/23
[2023-09-23] MEDS: gadobutroL 7.5 ML VIAL IVPUSH (17:14)
--- NOTE | 2023-09-23 19:05 | CONS_ITS ---
DATE OF SERVICE: 09/23/2023 REFERRING PHYSICIAN: Yeimy Marroquin MD REASON FOR CONSULTATION: Abnormal CT scan and abdominal pain. HISTORY OF PRESENT ILLNESS: The patient is a pleasant 83-year-old man, who was admitted to the hospital after presenting to the emergency room with 2 days of abdominal pain, mainly in the right lower quadrant, radiating to the right upper quadrant. There was no associated fevers, chills, nausea, or vomiting. The pain came on without any antecedent cause and has been worse with movement, like getting out of bed, but not with coughing or turning over in bed. He has had this pain before, which has resolved on its own. He denies any recent travel, suspect contact/food ingestions or new medications. In the emergency department, he was evaluated with laboratory studies and imaging, which are reviewed. The major finding is that a CT scan is interpreted as showing abnormalities in the right lower quadrant, near the mid abdomen with a 6 x 5 x 4 area of masslike fatty inflammation. This was thought possibly consistent with epiploic appendagitis, an unusual case of diverticulitis, or a liposarcoma. PAST MEDICAL HISTORY: 1. 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 He did not require chemotherapy or radiation. 2. Hyperlipidemia. 3. Hypertension. 4. Cataracts. CURRENT MEDICATIONS: Current medication list is reviewed in the chart. ALLERGIES: THERE ARE NONE REPORTED. FAMILY HISTORY: This is reviewed with the patient, is negative for GI malignancy. SOCIAL HISTORY: There is no current tobacco, alcohol, or substance abuse. REVIEW OF SYSTEMS: SKIN: No pruritus. HEENT: Negative. CARDIOPULMONARY: No shortness of breath or chest pain. GASTROINTESTINAL: As above. He underwent EGD and colonoscopy in 2013 with removal of a polyp by his report. GENITOURINARY: Negative. NEUROPSYCHIATRIC: Negative. PHYSICAL EXAMINATION: GENERAL: Shows a pleasant male, lying comfortably in bed. VITAL SIGNS: Reviewed in electronic medical record and are stable. SKIN: Anicteric. HEENT: Shows no scleral icterus. NECK: Without lymphadenopathy or thyromegaly. LUNGS: Clear. HEART: Shows regular rate and rhythm. S1, S2. No murmur. ABDOMEN: Soft. Without focal masses or tenderness. Bowel sounds are present. No organomegaly is noted. He does have some mild generalized tenderness on the right side, but no guarding or rebound. EXTREMITIES: Without edema. LABORATORY DATA AND IMAGING STUDIES: Reviewed. There does not appear to be any significant findings amenable to biopsy in the right lower quadrant after discussion with Interventional Radiology. IMPRESSION: Abdominal pain. This does not appear consistent with diverticulitis and no definite mass is identified. Epiploic appendagitis is a possibility and this should respond to supportive care, for which he does not need antibiotics. MRI has been ordered and is pending. I would continue supportive care as you were doing. I do not think colonoscopy will be helpful in further diagnosing his symptoms, as his colon looks fairly normal on my review of the CT scan. Thanks for asking me to see him. I will follow him in the hospital with you. MD DULCE Esquivel/LAYNE / [phone]
[2023-09-24 03:13] VITALS: BP 118/56; PULSE 84; RESP 18; TEMP 36.6; O2SAT 95
[2023-09-24] MEDS: 0.9 % Sodium Chloride 1,000 ML 100 ML IVCONT (05:53)
[2023-09-24 06:26] LABS: Anion Gap 12 (12-20); Blood Urea Nitrogen 15 mg/dL (9-16); Calcium 8.5 mg/dL (8.4-10.2); Carbon Dioxide 22 mmol/L (22-29); Chloride 107 mmol/L (96-108); Creatinine Clr Calc Pharmacy 69.2; Estimated Glomerular Filt Rate > 60; Glucose Random 80 mg/dL (60-115); Potassium 3.5 mmol/L (3.3-5.1); Sodium 137 mmol/L (135-145)
[2023-09-24 06:35] LABS: Hematocrit 28.5 % (42.0-52.0); Hemoglobin 9.6 g/dl (14.0-18.0); Mean Corpuscular HGB Conc 33.7 g/dl (31.0-36.0); Mean Corpuscular Hemoglobin 31.5 pg (27.0-33.0); Mean Corpuscular Volume 93.4 fL (80.0-98.0); Platelet Count 176 X10*3/uL (160-400); Red Blood Count 3.05 X10*6/uL (4.60-5.80); Red Cell Distribution Width 13.4 % (11.0-16.0); White Blood Count 7.4 X10*3/uL (4.8-10.8)
[2023-09-24 07:31] VITALS: BP 128/67; PULSE 82; RESP 20; TEMP 36.6; O2SAT 96
--- NOTE | 2023-09-24 07:57 | PM.EVENT ---
Event Note Date of Service: 09/24/23 Event Note: MRI reviewed: Impression:4 x 9 x 9 cm fatty mass in the right abdomen. This has delayed peripheral or capsular enhancement and enhancing single slightly thickened septation. Differential would include fat necrosis related to previous surgery or trauma, epiploic appendicitis and benign and malignant fatty soft tissue mass. Short-term imaging follow-up recommended. Does appear more inflammatory but short-term follow-up imaging is a reasonable idea. If inflammation seems to be increasing or symptoms persist, either percutaneous or laparoscopic biopsy may be possible. Time Spent With Patient Time: Total time managing care of this patient today ____ minutes.
[2023-09-24] MEDS: Valsartan 160 MG TABLET PO (09:18)
[2023-09-24] MEDS: 0.9 % Sodium Chloride Flush 3 ML SYRINGE IVFLUSH (09:18)
--- NOTE | 2023-09-24 09:38 | P.PNGI_ITS ---
Subjective Subjective Date of Service: 09/24/23 Interval History: feels better tolerating diet Critical Care Time (minutes): 0 Physical Exam 2 Vital Signs: Vital Signs: Last Vital Signs Temp 97.8 F 09/24/23 07:31 Pulse 82 09/24/23 07:31 Resp 20 09/24/23 07:31 BP 128/67 09/24/23 07:31 Pulse Ox 96 09/24/23 07:31 O2 Del Method Room Air 09/24/23 07:31 BMI result Body Mass Index 22.1 GI: Other: abdomen is soft, mild rlq tenderness Objective Data Labs 09/24/23 05:40 09/24/23 05:40 Labs: Laboratory Results - last 24 hr 09/23/23 09/24/23 05:23 05:40 WBC 7.4 RBC 3.05 L Hgb 9.6 L Hct 28.5 L MCV 93.4 MCH 31.5 MCHC 33.7 RDW 13.4 Plt Count 176 MPV 10.0 Absolute Nucleated RBC 0.000 Nucleated RBC % (auto) 0.0 Sodium 137 Potassium 3.5 Chloride 107 Carbon Dioxide 22 Anion Gap 12 BUN 15 Creatinine 0.73 Estim Creat Clear Calc 69.2 Estimated GFR > 60 Random Glucose 80 Calcium 8.5 Iron 26 L TIBC 229 % Saturation 11 L Unsat Iron Binding 203 Procedures Date of Service Date of Service: 09/24/23 Progress Note: A&P Assessment and plan (1) Abdominal pain: Status: Acute Assessment and Plan: improved mri reviewed agree with repeating ct in 3 months for followup. colonoscopy unlikely to add much at this time. Time Spent With Patient Time: Total time managing care of this patient today ____ minutes. Quality Stroke Does the patient have a stroke diagnosis?: No VTE Prior VTE?: No VTE Risk Level:: Medical - moderate - high VTE Device Contraindication: Treatment Not Indicated VTE Drug Contraindication: N/A - Med Ordered
[2023-09-24] MEDS: Acetaminophen 325 MG TABLET 975 MG PO (10:35)
--- NOTE | 2023-09-24 11:00 | PM.DS ---
DS: Providers Provider Date of Service: 09/24/23 Date of admission: 09/23/23 00:24 Primary care physician: Mayito Coates Consults: 09/23/23 00:52 Consult to Gastroenterology Routine Consulting Provider: Gio Deutsch Reason for consultation: RLQ masslike fatty inflammation Has provider been notified: No 09/23/23 00:55 Consult to General Surgery Routine Consulting Provider: Chuck Acevedo Reason for consultation: RLQ masslike fatty inflammation Has provider been notified: Yes DS: Diagnosis Discharge Diagnosis (1) Abdominal pain: Status: Acute DS: Summary Hospital Course Hospital Course: History of presenting illness: Date of Service: 09/23/23 Attending physician on admission: Yeimy Marroquin Chief Complaint: Abdominal pain Robin Michelle is a 83 years old man with past medical history significant for gastric CA stage 1A diagnosed in 2009 status post resection, essential hypertension and hyperlipidemia presents to the emergency department complaining of 2-day history of worsening right lower quadrant. He denied any associated symptoms such as nausea, vomiting or diarrhea. His last bowel movement was yesterday and was normal. No fever, chills, palpitations or dizziness reported. He denied any chest pain, shortness on breath or cough. He is a former tobacco smoker (quit 1983). Denied alcohol abuse or illicit drug use. Abdominal past surgical history is remarkable for laparoscopic surgery for gastric CA removal in 2009. His last EGD and colonoscopy was in 2013. In the ED, he was found to have normal vital signs. Blood workup showed no leukocytosis. Hemoglobin is 10.6 (which is better than baseline). There are no significant electrolyte imbalances. Creatinine and LFTs are normal. CRP is elevated, 4.67. Urine did not showed evidence of urinary tract infection. Abdomen pelvis CT scan showed mass like area of fatty inflammation in the RLQ/midabdomen adjacent to a segment of transverse colon with some wall thickening and pericolic inflammatory changes (diverticulitis versus epiploic appendagitis, less likely malignancy. ED tx: NS 1 L bolus. Hospital course: 83-year-old man with past medical history significant for gastric cancer stage IA status post laparoscopic Billroth procedure in 2009 presenting with acute right lower quadrant abdominal pain with no associated nausea, vomiting, diarrhea, fever or leukocytosis Abdominal CT showed mass like area of inflammation, diverticulitis versus epiploic appendagitis, patient was admitted to medical floor treated with IV fluids bowel rest seen by NPO for now, IV fluids, underwent abdominal MRI that showed 4 x 9 x 9 cm fatty mass in the right abdomen with delayed peripheral or capsular enhancement and enhancing single slightly thickened septation. Differential would include fat necrosis related to previous surgery or trauma, epiploic appendicitis and benign and malignant fatty soft tissue mass. Short-term imaging follow-up recommended. Patient seen by general surgeon Dr. Acevedo and Dr. Candelario they both agreed for short-term follow-up, if patient noted to have worsening symptoms then percutaneous all laparoscopic biopsy could be considered but since patient abdominal pain is improving will discharge home with strong recommendation to return back to ER if noted to have worsening symptoms, continue Tylenol as needed for pain. History of essential hypertension stable BP continue home medication Normocytic anemia stable Hyperlipidemia Continue statin Time Attestation Discharge Coordination Time (in mins): 35minutes Quality: Safe Use of Opioids Does Pt have an Active Cancer Diagnosis on the Problem List?: No Quality: Stroke Does the patient have a stroke diagnosis?: No Physical Exam Vital Signs: Vital Signs: Last Vital Signs Temp 97.8 F 09/24/23 07:31 Pulse 82 09/24/23 07:31 Resp 20 09/24/23 07:31 BP 128/67 09/24/23 07:31 Pulse Ox 96 09/24/23 07:31 O2 Del Method Room Air 09/24/23 07:31 BMI result Body Mass Index 22.1 Const: Other: General awake alert x3, in no acute distress. Neck supple no JVD. CVS regular rate rhythm, Respiratory lungs clear to auscultation, no respiratory distress, no wheeze, no rhonchi. Gastrointestinal abdomen soft, non tender, bowel sounds audible, no guarding , no rigidity. Extremities no edema. Neuro nonfocal Skin no rash Psych appropriate affect DS: Data Data Completed and Pending Labs on day of discharge: Laboratory Results - last 24 hr 09/23/23 09/24/23 05:23 05:40 WBC 7.4 RBC 3.05 L Hgb 9.6 L Hct 28.5 L MCV 93.4 MCH 31.5 MCHC 33.7 RDW 13.4 Plt Count 176 MPV 10.0 Absolute Nucleated RBC 0.000 Nucleated RBC % (auto) 0.0 Sodium 137 Potassium 3.5 Chloride 107 Carbon Dioxide 22 Anion Gap 12 BUN 15 Creatinine 0.73 Estim Creat Clear Calc 69.2 Estimated GFR > 60 Random Glucose 80 Calcium 8.5 Iron 26 L TIBC 229 % Saturation 11 L Unsat Iron Binding 203 Discharge Plan Discharge Anticipated Discharge Date/Time: 09/24/23 10:51 Patient Disposition: Home, Self-Care Discharge Diagnosis: Acute abdominal pain Referrals: Mayito Coates [Other] - 1 Week Gio Deutsch MD [Physician] - Discharge Medications: Continued irbesartan 300 mg tablet 300 mg PO DAILY lovastatin 40 mg tablet 40 mg PO DAILY zolpidem 5 mg tablet 5 mg PO DAILY PRN (Reason: Insomnia) Discharge Orders: Discharge Order (Routine); Ordered 09/24/23 Ordered By: Mayo Howard Diet: Advance to usual diet Activity on Discharge: As tolerated Stand Alone Forms: Patient Portal Discharge page Care Plan Goals: Acute abdominal pain improving if noted to have worsening abdominal pain, nausea vomiting returned to ED Take Tylenol as needed for pain Repeat imaging study in 2-3 months Health Concerns: Hyperlipidemia Hypertension Continue all home medications Plan of Treatment: Outpatient follow-up with primary care physician Outpatient follow-up with Dr. Pedro Candelario call for appointment in 2-4 weeks Assessment: As above
[2023-09-24 11:36] VITALS: BP 134/70; PULSE 72; RESP 18; TEMP 36.8; O2SAT 98
--- NOTE | 2023-09-24 11:58 | MHC.CM.PN ---
Pt is being medically cleared for D/C home self-care, pt states his son will pick him up at 12:30pm today.
== END 2023-09-24 13:18 | disposition home or self-care (01) | DRG 395 ==
LOC: HO.ED 09-23 00:04 → HO.EDOVER 09-23 00:27 → HO.IMC 09-23 07:39
PROVIDERS: Nurse Practitioner Acute Care; Nurse Practitioner Family; Physician Assistant; Admitting Provider Internal Medicine; Emergency Provider Emergency Medicine Emergency Medical Services; PCP Nurse Practitioner Acute Care; Visit Provider Hospitalist
DX: K63.89 Other specified diseases of intestine (principal); E78.5 Hyperlipidemia, unspecified; I10 Essential (primary) hypertension; D64.9 Anemia, unspecified; G47.00 Insomnia, unspecified; Z85.028 Personal history of other malignant neoplasm of stomach; Z87.891 Personal history of nicotine dependence; Z79.899 Other long term (current) drug therapy
CPT/HCPCS: 36415; 74177; 74183; 80048; 80053; 81001; 83540; 83690; 85025; 85027; 86140; 99285; A9585; Q9967

== ENCOUNTER → 2023-09-23 00:24 | Outpatient (BNV) | payer MEDICARE, SELFPAY | PROVIDERS: Admitting Provider Internal Medicine; Emergency Provider Emergency Medicine Emergency Medical Services; Visit Provider Surgery | DX: R10.31 Right lower quadrant pain (principal) | CPT/HCPCS: 99222; 99499 ==

== ENCOUNTER → 2023-09-23 00:24 | Outpatient (BNV) | payer MEDICARE, SELFPAY | PROVIDERS: Admitting Provider Internal Medicine; Emergency Provider Emergency Medicine Emergency Medical Services; Visit Provider Internal Medicine | DX: R10.31 Right lower quadrant pain (principal); I10 Essential (primary) hypertension; E78.5 Hyperlipidemia, unspecified | CPT/HCPCS: 99223; 99239; 99499 ==

== ENCOUNTER 2023-11-23 14:01 | Outpatient (REF) | payer MEDICARE, SELFPAY ==
--- NOTE | ~2023-11-23 | CT_ITS ---
EXAMINATION: CT ABDOMEN AND PELVIS WITH CONTRAST CLINICAL INFORMATION: Abnormal CT scan. COMPARISON: CT abdomen and pelvis 09/22/2023: Masslike area of fatty inflammation in the right lower quadrant/midabdomen adjacent to a segment of transverse colon with some wall thickening and pericolonic inflammatory change. This may be secondary to diverticulitis or epiploic appendagitis and less likely malignancy. MR abdomen 09/23/2023: 4 x 9 x 9 cm fatty mass in the right abdomen. This has delayed peripheral or capsular enhancement and enhancing single slightly thickened septation. Differential would include fat necrosis related to previous surgery or trauma, epiploic appendicitis and benign and malignant fatty soft tissue mass. Short-term imaging follow-up recommended. TECHNIQUE: Multidetector volumetric images were obtained from the superior aspect of the liver through the pubic symphysis following administration 85 mL of Omnipaque 350 intravenous contrast. Sagittal and coronal reformatted images were obtained on the technologist's workstation. Oral contrast: No This CT examination was performed using dose optimization techniques as appropriate, variously including the following: *Automated exposure control *Adjustment of mA and/or kV according to patient size (this includes techniques or standardized protocols for targeted exams where dose is matched to indication/reason for exam; i.e. extremities or head) *Use of iterative reconstruction technique DLP: 259 mGy-cm FINDINGS: LUNG BASES: The visualized lung bases are unremarkable. LIVER, GALLBLADDER, AND BILIARY TREE: The liver is normal in size, shape, and attenuation. No focal hepatic lesion or biliary ductal dilatation is present. The gallbladder is appears normal with no evidence of radiopaque gallstones, gallbladder wall thickening, or obvious pericholecystic inflammatory changes. PANCREAS: Unremarkable. SPLEEN: Unremarkable. ADRENAL GLANDS: Unremarkable. KIDNEYS AND URETERS: The kidneys are normal in size, shape, and attenuation. No hydronephrosis, hydroureter, or calculi seen. Multiple bilateral benign Bosniak class I renal cysts are noted which require no additional imaging or follow-up. No solid renal masses are seen. No perinephric stranding. BLADDER: Unremarkable. GASTROINTESTINAL TRACT: A small hiatal hernia is present. In the right lower quadrant/midabdomen again seen is an area of masslike inflammatory changes in the fat behind the anterior abdominal wall and in front of colon. Overall size appears smaller when compared to prior measuring 7.8 x 2.6 x 5.7 cm previously measuring 10.8 x 4.0 x 7.3 cm (3:42 compare prior 2:45). Previously seen adjacent segment of transverse colon with wall thickening, narrowing and pericolonic inflammatory change appears improved as do adjacent small-bowel loops which appear thickened and minimally tethered. Given the improvement in appearances, malignancy is less likely and an inflammatory process such as omental infarction or epiploic appendagitis is considered more likely. The small and large bowel appear unremarkable. The appendix is unremarkable. ABDOMINAL WALL: No significant hernia is appreciated. LYMPH NODES: No retroperitoneal lymphadenopathy VASCULAR: Calcific atherosclerotic changes are present in the aorta and iliofemoral vessels. There is no evidence of an abdominal aortic aneurysm. PELVIC VISCERA: Mildly prominent prostate. Seminal vesicles appear normal. OSSEOUS STRUCTURES: Degenerative changes are present in the spine. No bony destructive lesions CT/CT abdomen pelvis w IV con IMPRESSION: 1. Masslike area of inflammatory changes in the right lower quadrant/midabdomen appears smaller when compared to prior. Adjacent transverse colon and small bowel loops appear improved. Given the improvement in appearances, an inflammatory process such as omental infarction or epiploic appendagitis is considered more likely than neoplasm. A repeat CT scan in 3 months may be useful. 2. Incidental note made of small hiatal hernia, benign Bosniak class I renal cysts which need no additional imaging or follow-up, and degenerative changes in the spine. Fleischner guidelines were followed.
[2023-11-23] MEDS: iohexoL 350 MG/ML 100 ML INFUS..BTL 85 ML IV (16:07)
[2023-11-23] MEDS: Barium Sulfate Oral (Vanilla) 450 ML ORAL.SUSP 900 ML PO (16:08)
[2023-11-24 10:43] LABS: Creatinine POC 0.7 mg/dL (0.5-1.4); GFR POC > 60
== END 2023-11-23 14:02 | disposition home or self-care (01) ==
LOC: HO.CT 14:01
PROVIDERS: PCP Nurse Practitioner Acute Care; Visit Provider Internal Medicine Gastroenterology
DX: R93.3 Abnormal findings on diagnostic imaging of other parts of digestive tract (principal)
CPT/HCPCS: 74177; 82565; Q9967